=== PATIENT | male | born 1980 | race Caucasian/White ===

== ENCOUNTER 2017-03-11 11:41 | Emergency (ER) | payer OTHER ==
[2017-03-11] MEDS ORDERED: Ibuprofen TAB* 600 MG PO ONE (12:54)
[2017-03-11] MEDS ORDERED: Lidocaine 2% W/EPI 1:100,000* 20 ML MDV INJ ONE (12:59)
--- NOTE | 2017-03-11 13:06 | UC ---
Skin Complaint HPI - HPI Summary HPI Summary: patient is a non medicated diabetic with a hx of MRSA. he presents with a large abscess on the upper left back. large indurated, painful, small amount of drainage noted. - History of Current Complaint Chief Complaint: UCSkin Time Seen by Provider: 03/11/17 12:54 Stated Complaint: SKIN COMPLAINT Hx Obtained From: Patient Onset/Duration: Sudden Onset, Lasting Days Skin Exposure Onset/Duration: Days Ago Timing: Constant Onset Severity: Moderate Current Severity: Severe Location: Diffuse - upper left back Character: Swelling, Pruritus, Redness, Raised, Painful Aggravating: Clothing, Touch Alleviating: Nothing Associated Signs & Symptoms: Positive: Fever - Allergy/Home Medications Allergies/Adverse Reactions: Allergies Allergy/AdvReac Type Severity Reaction Status Date / Time Amoxicillin Allergy Severe HEADACHE,RA Verified 03/11/17 12:43 SH Home Medications: Home Medications Acetaminophen TAB* [Tylenol TAB*] 975 mg PO Q6H PRN 03/11/17 [History Confirmed 03/11/17] Review of Systems Constitutional: Fever Skin: Other - abscess Eyes: Negative ENT: Negative Respiratory: Negative Cardiovascular: Negative Gastrointestinal: Negative Genitourinary: Negative Motor: Negative Musculoskeletal: Arthralgia - shoulder, Myalgia Neurological: Negative Psychological: Negative All Other Systems Reviewed And Are Negative: Yes PMH/Surg Hx/FS Hx/Imm Hx Previously Healthy: Yes Endocrine History Of: Reports: Diabetes Denies: Thyroid Disease - Surgical History Surgical History: None - Family History Known Family History: Positive: Diabetes - Social History Alcohol Use: None Substance Use Type: None Smoking Status (MU): Never Smoked Tobacco Household Exposure Type: Cigarettes - Immunization History Most Recent Influenza Vaccination: Not the Season Physical Exam Triage Information Reviewed: Yes Appearance: Ill-Appearing, Pain Distress, Obese Vital Signs: Initial Vital Signs Temp 101.7 F 03/11/17 12:44 Pulse 107 03/11/17 12:44 Resp 18 03/11/17 12:44 BP 153/86 03/11/17 12:44 Pulse Ox 99 03/11/17 12:44 Vital Signs Reviewed: Yes Eye Exam: Normal Eyes: Positive: Conjunctiva Clear ENT Exam: Normal ENT: Positive: Hearing grossly normal, Pharynx normal, TMs normal Dental Exam: Normal Neck exam: Normal Neck: Positive: Supple, Nontender, No Lymphadenopathy Respiratory Exam: Normal Respiratory: Positive: Chest non-tender, Lungs clear, Normal breath sounds Cardiovascular: Positive: No Murmur, Pulses Normal, Tachycardia Abdominal Exam: Normal Abdomen Description: Positive: Nontender, No Organomegaly, Soft Bowel Sounds: Positive: Present Musculoskeletal Exam: Normal Musculoskeletal: Positive: Strength Intact, ROM Limited @ - left shoulder due to pain Neurological Exam: Normal Neurological: Positive: Alert, Muscle Tone Normal Psychological Exam: Normal Skin: Positive: Other - large area of erythema, approximately 4 inches, drainage from center, induration xtends beond the erythema to the shuolder area. Course/Dx - Course Course Of Treatment: hx obtained, exam performed, meds reviewed, i and d of abscess performed large amount of drainage, wound culture obtained. i gram of rocephin given IM, prescribed bactrim for the next week, recommend follow up in 2 days, sooner if symtpoms worsen. - Differential Diagnoses - Skin Complaint Differential Diagnoses: Abscess, Allergic Reaction, Contact Dermatitis, MRSA - Diagnoses Provider Diagnoses: abscess of left upper back,. hx of MRSA Discharge - Discharge Plan Condition: Stable Disposition: HOME Patient Education Materials: Warm Compress or Soak (ED), Abscess (ED) Additional Instructions: 1. keep the area clean and dry, it will continue to drain. 2. take the medication as prescribed. 3. I recommend follow up if the area becomes more red, more painful or your fever persists. 4. Wound culture was obtained, if any change to treatment is necesary we will call you.
[2017-03-11] MEDS ORDERED: cefTRIAXone VIAL(*) 1,000 MG VIAL IM ONE (13:47)
[2017-03-11] MEDS ORDERED: Lidocaine 1% MPF* 2 ML VIAL INJ ONE (13:53)
[2017-03-11 14:22] VITALS: BP 131/78
== END 2017-03-11 14:25 | disposition home or self-care (01) ==
LOC: UCCORT 11:41
DX: L02.212 Cutaneous abscess of back [any part, except buttock and flank] (principal); Z86.14 Personal history of Methicillin resistant Staphylococcus aureus infection; R50.9 Fever, unspecified; E11.9 Type 2 diabetes mellitus without complications; E66.9 Obesity, unspecified; Z88.1 Allergy status to other antibiotic agents; Z77.22 Contact with and (suspected) exposure to environmental tobacco smoke (acute) (chronic)
CPT/HCPCS: 10060; 87070; 87077; 87186; 87205; 87640; 87641; 96372; 99212; A9270-GY; G0463; J0696

== ENCOUNTER 2018-03-24 11:28 | Emergency (ER) | payer OTHER ==
[2018-03-24 12:02] VITALS: BP 132/89
--- NOTE | 2018-03-24 12:56 | RAD ---
INDICATION: Right forearm injury. TECHNIQUE: 2 views of the right forearm were obtained. FINDINGS: There is soft tissue swelling present along the posterior aspect of the forearm. The bones are in normal alignment. No fracture is seen. IMPRESSION: SOFT TISSUE SWELLING, NO FRACTURE IS SEEN.
--- NOTE | 2018-03-24 13:39 | UC ---
Hand/Wrist HPI - HPI Summary HPI Summary: fell in hallway this morning hitting right arm on washing machine - History Of Current Complaint Chief Complaint: UCUpperExtremity Stated Complaint: RIGHT WRIST INJURY Time Seen by Provider: 03/24/18 13:34 Hx Obtained From: Patient ?: No Mechanism Of Injury: fall Onset/Duration: Sudden Onset Severity Initially: Moderate Severity Currently: Moderate Pain Intensity: 6 Pain Scale Used: 0-10 Numeric Character Of Pain: Aching, Throbbing Aggravating Factor(s): Movement Alleviating Factor(s): Nothing Associated Signs And Symptoms: Positive: Negative Related History: Dominant Hand Right - Allergies/Home Medications Allergies/Adverse Reactions: Allergies Allergy/AdvReac Type Severity Reaction Status Date / Time amoxicillin Allergy Rash Verified 03/24/18 12:02 Home Medications: Home Medications glyBURIDE TAB* [Diabeta TAB*] 5 mg PO DAILY 03/24/18 [History Confirmed 03/24/18 ] metFORMIN* [Glucophage 1000 MG TAB *] 1,000 mg PO DAILY 03/24/18 [History Confirmed 03/24/18] PMH/Surg Hx/FS Hx/Imm Hx Previously Healthy: Yes Endocrine History: Diabetes - Surgical History Surgical History: None - Family History Known Family History: Positive: Diabetes - Social History 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 [employer] Lives: With Family Alcohol Use: None Substance Use Type: None Smoking Status (MU): Never Smoked Tobacco Household Exposure Type: Cigarettes - Immunization History Most Recent Influenza Vaccination: Not the Season Review of Systems Constitutional: Negative Skin: Negative Eyes: Negative ENT: Negative Respiratory: Negative Cardiovascular: Negative Gastrointestinal: Negative Genitourinary: Negative Motor: Negative Neurovascular: Negative Musculoskeletal: Arthralgia - right forarm pain and swelling Neurological: Negative Psychological: Negative Is Patient Immunocompromised?: No All Other Systems Reviewed And Are Negative: Yes Physical Exam Triage Information Reviewed: Yes Appearance: Well-Appearing, No Pain Distress, Well-Nourished Vital Signs: Initial Vital Signs Temp 97.3 F 03/24/18 11:53 Pulse 90 03/24/18 11:53 Resp 16 03/24/18 11:53 BP 132/89 03/24/18 11:53 Pulse Ox 98 03/24/18 11:53 Vital Signs Reviewed: Yes Eye Exam: Normal Eyes: Positive: Conjunctiva Clear ENT Exam: Normal ENT: Positive: Normal ENT inspection, Hearing grossly normal. Negative: Nasal congestion, Trismus, Muffled voice, Hoarse voice Dental Exam: Normal Neck exam: Normal Neck: Positive: Supple, Nontender, No Lymphadenopathy Respiratory Exam: Normal Respiratory: Positive: Chest non-tender, Lungs clear, Normal breath sounds, No respiratory distress, No accessory muscle use Cardiovascular Exam: Normal Cardiovascular: Positive: RRR, No Murmur, Pulses Normal, Brisk Capillary Refill Musculoskeletal Exam: Other Musculoskeletal: Positive: Strength Intact, ROM Intact, Edema @ - right forarm Neurological Exam: Normal Neurological: Positive: Alert, Muscle Tone Normal Psychological Exam: Normal Skin Exam: Normal Diagnostics - Radiology No standard instances Xray Interpretation: Positive (See Comments) Radiology Interpretation Completed By: ED Physician - soft tissue swelling, Radiologist Hand/Wrist Course/Dx - Course Course Of Treatment: leigh wrap, ice, ibuprofen, follow with pcp prn - Differential Dx/Diagnosis Provider Diagnoses: Contusion right sidtal forearm Discharge - Sign-Out/Discharge Documenting (check all that apply): Discharge/Admit/Transfer - Discharge Plan Condition: Stable Disposition: HOME Patient Education Materials: Acetaminophen (By mouth), Ibuprofen (By mouth), Contusion in Adults (ED), R.I.C.E. Treatment (ED) Referrals: Babak Casillas PA [Primary Care Provider] - If Needed - Billing Disposition and Condition Condition: STABLE Disposition: HOME
== END 2018-03-24 13:45 | disposition home or self-care (01) ==
LOC: UCCORT 11:28
DX: S50.12XA Contusion of left forearm, initial encounter (principal); W18.30XA Fall on same level, unspecified, initial encounter; Y93.9 Activity, unspecified; Y92.9 Unspecified place or not applicable; Z88.1 Allergy status to other antibiotic agents; E11.9 Type 2 diabetes mellitus without complications; Z79.84 Long term (current) use of oral hypoglycemic drugs
CPT/HCPCS: 99212; G0463

== ENCOUNTER 2019-04-21 17:54 | Emergency (ER) | payer SELFPAY ==
[2019-04-21 18:13] VITALS: BP 143/75
--- NOTE | 2019-04-21 18:29 | UC ---
Hand/Wrist HPI - HPI Summary HPI Summary: 39-year-old male who was playing basketball today when he ran into another person injuring his left hand mostly over the fourth and fifth metacarpals. - History Of Current Complaint Chief Complaint: UCUpperExtremity Stated Complaint: LEFT HAND INJURY Time Seen by Provider: 04/21/19 18:23 Hx Obtained From: Patient ?: No Onset/Duration: Sudden Onset Severity Initially: Moderate Severity Currently: Moderate Pain Intensity: 7 Character Of Pain: Sharp, Dull, Aching Aggravating Factor(s): Movement Alleviating Factor(s): Nothing Associated Signs And Symptoms: Positive: Swelling, Bruising - Allergies/Home Medications Allergies/Adverse Reactions: Allergies Allergy/AdvReac Type Severity Reaction Status Date / Time amoxicillin Allergy Rash Verified 04/21/19 18:13 PMH/Surg Hx/FS Hx/Imm Hx Previously Healthy: Yes Endocrine History: Diabetes - Surgical History Surgical History: None - Family History Known Family History: Positive: Diabetes - Social History Alcohol Use: None Substance Use Type: None Smoking Status (MU): Never Smoked Tobacco Household Exposure Type: Cigarettes - Immunization History Most Recent Influenza Vaccination: Not the Season Review of Systems All Other Systems Reviewed And Are Negative: Yes Skin: Positive: Bruising - Mild bruising to the palmar aspect of left hand ulnar side. Motor: Positive: Decreased ROM Neurovascular: Positive: Negative Musculoskeletal: Positive: Decreased ROM - Mildly decreased range of motion with complete flexion of fingers due to pain. Neurological: Positive: Negative Psychological: Positive: Negative Is Patient Immunocompromised?: No Physical Exam Triage Information Reviewed: Yes Appearance: Well-Appearing, No Pain Distress, Well-Nourished Vital Signs: Initial Vital Signs Temp 98.7 F 04/21/19 18:10 Pulse 92 04/21/19 18:10 Resp 16 04/21/19 18:10 BP 143/75 04/21/19 18:10 Pulse Ox 98 04/21/19 18:10 Vital Signs Reviewed: Yes Musculoskeletal: Positive: Strength Limited @ - Flexion limited of the fifth finger due to pain., ROM Limited @ - Fairly good flexion however patient limits at because of pain in his hand. Refer pulses neuro sensation capillary refill. Swelling over the fourth and fifth metacarpals with tenderness on palpation. Patient also has a small bruise to the palmar aspect on the ulnar side with mild tenderness on palpation. Scaphoid is nontender. Neurological: Positive: Alert, Muscle Tone Normal Psychological Exam: Normal Hand/Wrist Course/Dx - Course Course Of Treatment: Left hand x-ray: Interpreted by myself and Dr. Lipscomb which shows a comminuted fracture at the base of the fifth metacarpal. An ulnar gutter splint was applied, patient tolerated procedure well. An arm sling was also applied. He is to follow-up with the orthopedist tomorrow morning by phone and make an appointment to be seen. No work until he is cleared by the orthopedist. He may take Tylenol or Motrin for pain. The ulnar gutter splint was applied by myself. Patient had good neuro sensation following the ulnar gutter splint placement. - Differential Dx/Diagnosis Provider Diagnosis: Hand fracture, left Discharge - Sign-Out/Discharge Documenting (check all that apply): Patient Departure All imaging exams completed and their final reports reviewed: No - Discharge Plan Condition: Fair Disposition: HOME Patient Education Materials: Hand Fracture (ED) Forms: *Work Release Referrals: Babak Casillas PA [Primary Care Provider] - Shellie Maxwell MD [Medical Doctor] - Additional Instructions: Elevate as much as possible and apply ice intermittently over the next 24-48 hours. Follow-up with the orthopedist, call tomorrow and make an appointment. Keep the splint on at all times until you are seen by the orthopedist. - Billing Disposition and Condition Condition: FAIR Disposition: Home - Attestation Statements Provider Attestation: I was available for consult. This patient was seen by the NAOMIE. The patient was not presented to , seen by or examined by me . I reviewed the x-rays: (Preliminary report ): Communicated, minimally displaced non-angulated fracture of the shaft of the fifth metacarpal. Final x-ray report will be read by the radiologist tomorrow morning. -Jenni Lipscomb MD
--- NOTE | 2019-04-22 08:23 | UC ---
- Progress Note Progress Note: Patient Name: WILFRED SCALES Medical Record#: [id number] Ordering Physician: Milagro Askew [employer] Acct.#: [id number] : 1980 Age: 39 Sex: M Location: [facility]RG[facility] Exam Date: 04/21/191825 ADM Status: [facility] Order Information: HAND - LEFT MINIMUM 3 VIEWS Accession Number: [id number] CPT: 90533 INDICATION: Left hand injury. TECHNIQUE: 4 views of the left hand were obtained. FINDINGS: There is an oblique slightly comminuted fracture present through the proximal diaphysis and metaphysis of the fifth metacarpal. The distal fragment is displaced slightly one cortical diameter lateral relative to the proximal fragment. No other fractures are seen. IMPRESSION: OBLIQUE SLIGHTLY COMMINUTED, SLIGHTLY DISPLACED FRACTURE OF THE PROXIMAL FIFTH METACARPAL. R0 Preliminary Imaging Read R0 <Electronically signed by Nikos Kumar MD in OV> 04/22/19722 Dictated By: Nikos Kumar MD Dictated Date/Time: 04/22/19722 Transcribed Date/Time: 04/22/19721 Copy to: CC:Jenni Lipscomb MD; Babak LAGUERRE; Milagro Askew NP Imaging - [facility] [address] [place] [address] ph [phone]) ph ([phone]) ph ([phone]) This report is only to be considered final once signed by the Provider(s) as displayed in the "<Electronically Signed by >" field (s). Absence of a signature indicates the report is in a draft status and still needs to be finalized. In the event this document was created by someone other than the signing Provider, the individual initiating the document will be listed in the "Entered by:" or "Dictated by:" anne. 1 of 1 Course/Dx - Diagnoses Provider Diagnoses: Hand fracture, left Discharge - Sign-Out/Discharge Documenting (check all that apply): Post-Discharge Follow Up All imaging exams completed and their final reports reviewed: Yes - Discharge Plan Condition: Fair Disposition: HOME Patient Education Materials: Hand Fracture (ED) Forms: *Work Release Referrals: Babak Casillas PA [Primary Care Provider] - Shellie Maxwell MD [Medical Doctor] - Additional Instructions: Elevate as much as possible and apply ice intermittently over the next 24-48 hours. Follow-up with the orthopedist, call tomorrow and make an appointment. Keep the splint on at all times until you are seen by the orthopedist. - Billing Disposition and Condition Condition: FAIR Disposition: Home
== END 2019-04-21 19:25 | disposition home or self-care (01) ==
LOC: UCCORT 17:54
DX: S62.317A Displaced fracture of base of fifth metacarpal bone, left hand, initial encounter for closed fracture (principal); W51.XXXA Accidental striking against or bumped into by another person, initial encounter; Y93.67 Activity, basketball
CPT/HCPCS: 99213; G0463